=== PATIENT | female | born 2000 | race Caucasian/White ===

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

== ENCOUNTER 2019-04-05 12:28 | Emergency (ER) | payer OTHER, BC ==
--- NOTE | 2019-04-05 13:17 | EDM.PDOC ---
ED HPI GENERAL MEDICAL PROBLEM - General Chief Complaint: Upper Extremity Injury/Pain Stated Complaint: FINGER INJURY Time Seen by Provider: 04/05/19 13:17 Source of Information: Reports: Patient History Limitations: Reports: No Limitations - History of Present Illness INITIAL COMMENTS - FREE TEXT/NARRATIVE: HISTORY AND PHYSICAL: History of present illness: Patient is a 19-year-old female who presents to the emergency room with complaints of a crush injury of the right second and third digit. She states she was using a table saw to cut some meat bowel movements when the bone kicked back and crushed her second and third digit. Skin is intact. Patient denies any fever, chills, headache, change in vision, syncope or near syncope. Denies any chest pain, back pain, shortness of breath or cough. Denies any GI or symptoms. Patient has been eating and drinking appropriately. Review of systems: As per history of present illness and below otherwise all systems reviewed and negative. Past medical history: As per history of present illness and as reviewed below otherwise noncontributory. Surgical history: As per history of present illness and as reviewed below otherwise noncontributory. Social history: See social history for further information Family history: As per history of present illness and as reviewed below otherwise noncontributory. Physical exam: General: Well-developed and well-nourished 19-year-old female. Alert and oriented. Nontoxic appearing and in no acute distress. HEENT: Atraumatic, normocephalic, pupils equal and reactive bilaterally, negative for conjunctival pallor or scleral icterus, mucous membranes moist, trachea midline. No drooling or trismus noted. No meningeal signs. No hot potato voice noted. Lungs: Clear to auscultation, breath sounds equal bilaterally, chest nontender. Heart: S1S2, regular rate and rhythm without overt murmur Abdomen: Soft, nondistended, nontender. Skin: Intact, warm, dry. No lesions or rashes noted. Extremities: Pain with palpation of the base of second and third digit. She is able to move all extremities per self without difficulty or deficits. Flexion and extension of all digits. Neurovascular unremarkable. Neuro: Awake, alert, oriented. Cranial nerves II through XII unremarkable. Cerebellum unremarkable. Motor and sensory unremarkable throughout. Exam nonfocal. Notes: Radiology is reading the hand x-ray is negative. He sees some lucency at the third digit film, does have pain there. I will put her in a fiberglass splint and have her follow up with orthopedic provider or hand surgeon. She declines wanting any pain medication. Supportive care measures were reviewed and discussed. Voices understanding and is agreeable to plan of care. Denies any further questions or concerns at this time. Diagnostics: X-ray Therapeutics: Fiberglass splint Prescription: None Impression: Finger Injury Plan: 1. Rest, ice, elevate the affected extremity. Please wear the splint as directed. 2. Tylenol and/or Ibuprofen as needed for pain management. 3. Follow up with the Orthopedic provider or Hand Surgeon as we discussed. Return to the ED as needed and as discussed. Definitive disposition and diagnosis as appropriate pending reevaluation and review of above. Onset: Today Right Hand Pain Score (Numeric/FACES): 4 - Related Data Allergies Allergy/AdvReac Type Severity Reaction Status Date / Time No Known Allergies Allergy Verified 04/05/19 14:09 Home Meds: Home Meds Etonogestrel [Nexplanon] 1 dose IMPLANT ASDIRECTED 01/25/18 [History] Past Medical History HEENT History: Reports: Allergic Rhinitis Cardiovascular History: Reports: None Respiratory History: Reports: None Gastrointestinal History: Reports: None Genitourinary History: Reports: None BURLAP [employer]WER History: Reports: None Neurological History: Reports: Other (See Below) Other Neuro History: epilepsy, now resolved Psychiatric History: Reports: None Endocrine/Metabolic History: Reports: None Hematologic History: Reports: None Immunologic History: Reports: None Oncologic (Cancer) History: Reports: None Dermatologic History: Reports: None - Past Surgical History Musculoskeletal Surgical History: Reports: Other (See Below) Other Musculoskeletal Surgeries/Procedures:: surgery L hand from rat bite Social & Family History - Family History Family Medical History: Noncontributory - Caffeine Use Caffeine Use: Reports: Coffee Other Caffeine Use: states lots of coffee Review of Systems - Review of Systems Review Of Systems: ROS reveals no pertinent complaints other than HPI. ED EXAM, GENERAL - Physical Exam Exam: See Below (See dictation) Course - Vital Signs Last Recorded V/S: Last Vital Signs Temp 97.0 F 04/05/19 14:10 Pulse 99 04/05/19 14:55 Resp 18 04/05/19 14:55 BP 129/73 04/05/19 14:55 Pulse Ox 97 04/05/19 14:55 - Orders/Labs/Meds Orders: Active Orders 24 hr Category Date Time Status DME for Discharge [COMM] Stat Oth 04/05/19 14:19 Ordered Departure - Departure Time of Disposition: 14:22 Disposition: Home, Self-Care 01 Clinical Impression: Finger injury Qualifiers: Encounter type: initial encounter Laterality: right Qualified Code(s): S69.91XA - Unspecified injury of right wrist, hand and finger(s), initial encounter - Discharge Information Instructions: Finger Fracture, Adult, [id number] Referrals: PCP,Unknown [Primary Care Provider] - Forms: ED Department Discharge Additional Instructions: The following information is given to patients seen in the emergency department who are being discharged to home. This information is to outline your options for follow-up care. We provide all patients seen in our emergency department with a follow-up referral. The need for follow-up, as well as the timing and circumstances, are variable depending upon the specifics of your emergency department visit. If you don't have a primary care physician on staff, we will provide you with a referral. We always advise you to contact your personal physician following an emergency department visit to inform them of the circumstance of the visit and for follow-up with them and/or the need for any referrals to a consulting specialist. The emergency department will also refer you to a specialist when appropriate. This referral assures that you have the opportunity for follow-up care with a specialist. All of these measure are taken in an effort to provide you with optimal care, which includes your follow-up. Under all circumstances we always encourage you to contact your private physician who remains a resource for coordinating your care. When calling for follow-up care, please make the office aware that this follow-up is from your recent emergency room visit. If for any reason you are refused follow-up, please contact the [facility] Emergency Department at and asked to speak to the emergency department charge nurse. [facility] - [facility] Professional [address], [address] [place] [address] Dr Bonds, Orthopedist [facility] [address] [facility] [id number] Orthopedics at [facility] [address] [place] [address] [facility] [address] [place] [address] 1. Rest, ice, elevate the affected extremity. Please wear the splint as directed. 2. Tylenol and/or Ibuprofen as needed for pain management. 3. Follow up with the Orthopedic provider or Hand Surgeon as we discussed. Return to the ED as needed and as discussed. - My Orders Last 24 Hours: My Active Orders 04/05/19 14:19 DME for Discharge [COMM] Stat - Assessment/Plan Last 24 Hours: My Active Orders 04/05/19 14:19 DME for Discharge [COMM] Stat
--- NOTE | 2019-04-05 15:35 | CR ---
INDICATION: Right hand injury. TECHNIQUE: Three views of the right hand. COMPARISON: None. FINDINGS: No soft tissue swelling, fracture, subluxation or other abnormality. IMPRESSION: Negative right hand. Dictated by Jari Mancilla MD @ Apr 05 2019 3:32PM Signed by Dr. Jair Mancilla @ Apr 05 2019 3:34PM
== END 2019-04-05 14:55 | disposition home or self-care (01) ==
LOC: MW.ED 12:28
DX: S69.91XA Unspecified injury of right wrist, hand and finger(s), initial encounter (principal); W31.2XXA Contact with powered woodworking and forming machines, initial encounter
CPT/HCPCS: 73130-26-RT; 73130-RT; 99283-25